=== PATIENT | female | born 1990 | race Two or more races ===

== ENCOUNTER 2019-10-23 18:56 | Emergency (ER) | payer OTHER ==
[~2019-10-23] VITALS: Ht 162.6 cm; Wt 70.3 kg
[~2019-10-23 18:56] MED LIST: ATIVAN0.5 MG ORAL
[2019-10-23 19:10] VITALS: BP 119/84
--- NOTE | 2019-10-23 19:10 | NUR ---
ED Nurse Note: Pt ambulated to ED d/t s/p fall noted w/ complains of back and LT sided neck pain with tingling sensation on LT arm. Per pt, she hit her head on the stairs. happened for a week ago; symptoms worsen today. Pt denies loss of consciousness. VSS, Pt is A&O x4.
--- NOTE | 2019-10-23 19:35 | NUR ---
ED Nurse Note: Pt to CT, consent signed
--- NOTE | 2019-10-23 20:17 | Diagnostic Imaging Report ---
EXAM: CT Lumbar Spine Without Intravenous Contrast CLINICAL HISTORY: TRAUMA TECHNIQUE: Axial computed tomography images of the lumbar spine without intravenous contrast. CTDI is 16.7 mGy and DLP is 567 mGy-cm. One or more of the following dose reduction techniques were used: automated exposure control, adjustment of the mA and/or kV according to patient size, use of iterative reconstruction technique. COMPARISON: None FINDINGS: Vertebrae: Unremarkable. No acute fracture. Discs/spinal canal/neural foramina: No acute findings. No spinal canal stenosis. Soft tissues: Unremarkable. IMPRESSION: No acute fracture or dislocation of the lumbar spine.
[2019-10-23 20:18] LABS: BASOPHILS % (AUTO) 1.5 % (0.0-2.0); EOSINOPHILS % (AUTO) 2.4 % (0.0-3.0); HEMATOCRIT 44.8 % (37.0-47.0); LYMPHOCYTES % (AUTO) 32.7 % (20.0-45.0); MEAN CORPUSCULAR VOLUME 90 FL (80-99); MONOCYTES % (AUTO) 6.6 % (1.0-10.0); NEUTROPHILS % (AUTO) 56.8 % (45.0-75.0); PLATELET COUNT 260 K/UL (150-450); RED BLOOD COUNT 4.97 M/UL (4.20-5.40); RED CELL DISTRIBUTION WIDTH 12.5 % (11.6-14.8); WHITE BLOOD COUNT 9.4 K/UL (4.8-10.8)
--- NOTE | 2019-10-23 20:20 | Diagnostic Imaging Report ---
EXAM: CT Thoracic Spine Without Intravenous Contrast CLINICAL HISTORY: TRAUMA TECHNIQUE: Axial computed tomography images of the thoracic spine without intravenous contrast. CTDI is 7.5 mGy and DLP is 274 mGy-cm. One or more of the following dose reduction techniques were used: automated exposure control, adjustment of the mA and/or kV according to patient size, use of iterative reconstruction technique. COMPARISON: None FINDINGS: Vertebrae: There is a nondisplaced fracture of the spinous process of T7. The vertebral body heights are maintained. Discs/spinal canal/neural foramina: No acute findings. No spinal canal stenosis. Soft tissues: Unremarkable. IMPRESSION: Nondisplaced fracture of the spinous process of T7.
[2019-10-23 20:22] LABS: APPEARANCE,URINE CLEAR; BILIRUBIN, URINE NEGATIVE (NEGATIVE); COLOR,URINE PALE YELLOW; GLUCOSE, URINE (UA) NEGATIVE (NEGATIVE); KETONES,URINE NEGATIVE (NEGATIVE); LEUKOCYTE ESTERASE ,URINE NEGATIVE (NEGATIVE); NITRITE,URINE NEGATIVE (NEGATIVE); PH,URINE 6.5 (4.5-8.0); PROTEIN,URINE NEGATIVE (NEGATIVE); UROBILINOGEN,URINE NORMAL MG/DL (0.0-1.0)
[2019-10-23 20:29] LABS: ANION GAP 10 mmol/L (5-15); BLOOD UREA NITROGEN 10 mg/dL (7-18); CALCIUM 8.9 MG/DL (8.5-10.1); CARBON DIOXIDE 27 MMOL/L (21-32); CHLORIDE 105 MMOL/L (98-107); CREATININE 0.9 MG/DL (0.55-1.30); POTASSIUM 3.5 MMOL/L (3.5-5.1); SODIUM 142 MMOL/L (136-145)
--- NOTE | 2019-10-23 20:29 | Diagnostic Imaging Report ---
EXAM: CT Head Without Intravenous Contrast CLINICAL HISTORY: TRAUMA TECHNIQUE: Axial computed tomography images of the head/brain without intravenous contrast. CTDI is 53 mGy and DLP is 1045 mGy-cm. One or more of the following dose reduction techniques were used: automated exposure control, adjustment of the mA and/or kV according to patient size, use of iterative reconstruction technique. COMPARISON: None FINDINGS: Brain: Unremarkable. No hemorrhage. No significant white matter disease. No edema. Ventricles: Unremarkable. No ventriculomegaly. Bones/joints: Unremarkable. No acute fracture. Soft tissues: Unremarkable. Sinuses: A mucus retention cyst is seen within the right maxillary sinus. Mastoid air cells: Unremarkable as visualized. No mastoid effusion. IMPRESSION: No acute intracranial process.
--- NOTE | 2019-10-23 20:30 | Diagnostic Imaging Report ---
EXAM: CT Head and Maxillofacial Without Intravenous Contrast CLINICAL HISTORY: TRAUMA TECHNIQUE: Axial computed tomography images of the head/brain and face without intravenous contrast. CTDI is 15.30 mGy and DLP is 287 mGy-cm. One or more of the following dose reduction techniques were used: automated exposure control, adjustment of the mA and/or kV according to patient size, use of iterative reconstruction technique. COMPARISON: None FINDINGS: Brain: Unremarkable. No hemorrhage. No significant white matter disease. No edema. Ventricles: Unremarkable. No ventriculomegaly. Bones/joints: No acute fracture. Soft tissues: Unremarkable. Sinuses: A mucus retention cyst is seen within the right maxillary sinus. Mastoid air cells: Unremarkable as visualized. No mastoid effusion. Orbits: Unremarkable as visualized. IMPRESSION: No acute facial bone fracture.
--- NOTE | 2019-10-23 20:32 | Diagnostic Imaging Report ---
EXAM: CT Cervical Spine Without Intravenous Contrast CLINICAL HISTORY: TRAUMA TECHNIQUE: Axial computed tomography images of the cervical spine without intravenous contrast. CTDI is 6 mGy and DLP is 148 mGy-cm. One or more of the following dose reduction techniques were used: automated exposure control, adjustment of the mA and/or kV according to patient size, use of iterative reconstruction technique. COMPARISON: None FINDINGS: Vertebrae: Unremarkable. No acute fracture. Discs/spinal canal/neural foramina: No acute findings. No spinal canal stenosis. Soft tissues: Unremarkable. IMPRESSION: No acute fracture or dislocation of the cervical spine.
[2019-10-23 20:33] LABS: ALANINE AMINOTRANSFERASE 25 U/L (12-78); ALBUMIN 4.7 G/DL (3.4-5.0); ALBUMIN/GLOBULIN RATIO 1.2 (1.0-2.7); ALKALINE PHOSPHATASE 99 U/L (46-116); ASPARTATE AMINO TRANSFERASE 18 U/L (15-37); BILIRUBIN,TOTAL 0.5 MG/DL (0.2-1.0)
--- NOTE | 2019-10-23 20:39 | Emergency Room Report ---
History of Present Illness General Chief Complaint: Multiple Trauma/Fall Source: Patient Present Illness HPI 29-year-old female with no significant past medical history here status post fall. Reports that about a week ago she woke up and was still drowsy and then stared and fell down the stairs and hit the back of her head to the floor. Denies any loss of consciousness, was slightly nauseated at the beginning. Any photophobia and blurry vision. Denies any fatigue and memory loss. Reports that ever since then she has been having neck pain especially with rotational movement and pain radiating down left shoulder. Denies any tingling or numbness. Also has thoracic and lumbar pain. Complains of left-sided facial pain. Denies any recent URI symptoms. Cough and congestion. Denies any blurred speech, unilateral weakness. Patient is neurovascularly intact. Speaks in full sentences. Reports that also 2 weeks ago she fell again when she was drowsy. Does not have any underlying disease that she knows of. Patient denies any dizziness at the time of fall. Denies any drug use. Denies . Has not taken medication for symptom relief. Reports the neck pain is worse when driving. No weakness in the extremities noted. Allergies: Coded Allergies: NO KNOWN ALLERGIES (Unverified Allergy, Unknown, 03/22/15) COVID-19 Screening Contact w/high risk pt: No Recent Travel to affected area: No Experienced COVID-19 symptoms?: No COVID-19 Testing performed ADMISSIONS NURSE: No Patient History Past Medical History: see triage record Past Surgical History: none Pertinent Family History: none Last Menstrual Period: October 19, 2019 Now: No Immunizations: UTD Reviewed Nursing Documentation: PMH: Agreed; PSxH: Agreed Nursing Documentation-PMH Past Medical History: No Stated History Review of Systems All Other Systems: negative except mentioned in HPI Physical Exam Vital Signs Date Time Temp Pulse Resp B/P (MAP) Pulse Ox O2 Delivery O2 Flow Rate FiO2 10/23/19 19:07 98.6 70 20 119/84 (96) 97 Room Air Sp02 EP Interpretation: reviewed, normal General Appearance: no apparent distress, alert, GCS 15, non-toxic Head: normocephalic, atraumatic Eyes: bilateral eye normal inspection, bilateral eye PERRL ENT: hearing grossly normal, normal pharynx, no angioedema, normal voice Neck: full range of motion, supple, thyroid normal, no meningismus, no bony tend, no carotid bruits, supple/symm/no masses Respiratory: chest non-tender, lungs clear, normal breath sounds, no rhonchi, no respiratory distress, no retraction, no wheezing, speaking full sentences Cardiovascular #1: regular rate, rhythm, no edema, no murmur Cardiovascular #2: 2+ carotid (R), 2+ carotid (L), 2+ radial (R), 2+ radial (L) , 2+ dorsalis pedis (R), 2+ dorsalis pedis (L) Gastrointestinal: normal bowel sounds, non tender, soft, non-distended, no guarding, no rebound Genitourinary: no CVA tenderness Musculoskeletal: back normal, no calf tenderness, pelvis stable, gait/station normal, non-tender, other - No impingement sign noted, no bony tenderness noted , no weakness is noted in the extremities, patient is neurovascularly intact Neurologic: alert, motor strength/tone normal, oriented x3, sensory intact, responsive, speech normal Psychiatric: judgement/insight normal, memory normal, mood/affect normal, no suicidal/homicidal ideation Skin: no rash, other - No ecchymosis noted Lymphatic: no adenopathy Medical Decision Making PA Attestation All diagnoses and treatment plans were reviewed and discussed with my supervising physician Dr. Mccarthy Diagnostic Impression: Primary Impression: Thoracic spine fracture Additional Impressions: Cervical sprain Head contusion ER Course 29-year-old female with no significant past medical history here status post fall. Reports that about a week ago she woke up and was still drowsy and then stared and fell down the stairs and hit the back of her head to the floor. Denies any loss of consciousness, was slightly nauseated at the beginning. Any photophobia and blurry vision. Denies any fatigue and memory loss. Reports that ever since then she has been having neck pain especially with rotational movement and pain radiating down left shoulder. Denies any tingling or numbness. Also has thoracic and lumbar pain. Complains of left-sided facial pain. Denies any recent URI symptoms. Cough and congestion. Denies any blurred speech, unilateral weakness. Patient is neurovascularly intact. Speaks in full sentences. Reports that also 2 weeks ago she fell again when she was drowsy. Does not have any underlying disease that she knows of. Patient denies any dizziness at the time of fall. Denies any drug use. Denies . Has not taken medication for symptom relief. Reports the neck pain is worse when driving. No weakness in the extremities noted. Ddx considered but are not limited to : thoracic spine fracture, thoracic spine strain, thoracic spine sprain, radiculopathy. Cerebral hematoma, head contusion , cervical sprain versus strain versus fracture, Vital signs: are WNL, pt. is afebrile H&PE are most consistent with: Thoracic spinal process fracture and T7, cervical sprain, head contusion, facial contusion, ORDERS: Head CT no contrast, CT C-spine noncontrast, CT facial noncontrast, CT T -spine no contrast, CT L-spine no contrast, CBC, CMP, UA, urine test, tox screen, troponin to rule out underlying causes of patient falling. I did not order an EKG or chest x-ray as patient was not complaining of any pain or palpitation and does not complain of any dizziness prior to fall. Robaxin, ibuprofen, lidocaine patch ED INTERVENTIONS: Soft collar was applied per patient's request DISCHARGE: At this time pt. is stable for d/c to home. Will provide printed patient care instructions, and any necessary prescriptions. Care plan and follow up instructions have been discussed with the patient prior to discharge. Patient to follow with desktop publishing specialist, take medication as directed, MRI of the neck may be needed patient complains of pain however denies any tingling or numbness. If worsening symptoms return to the emergency CT/MRI/US Diagnostic Results CT/MRI/US Diagnostic Results #1: Imaging Test Ordered: CT head no contrast Impression FINDINGS: Brain: Unremarkable. No hemorrhage. No significant white matter disease. No edema. Ventricles: Unremarkable. No ventriculomegaly. Bones/joints: Unremarkable. No acute fracture. Soft tissues: Unremarkable. Sinuses: A mucus retention cyst is seen within the right maxillary sinus. Mastoid air cells: Unremarkable as visualized. No mastoid effusion. IMPRESSION: No acute intracranial process. CT/MRI/US Diagnostic Results #2: Imaging Test Ordered: CT facial bones no contrast Impression FINDINGS: Brain: Unremarkable. No hemorrhage. No significant white matter disease. No edema. Ventricles: Unremarkable. No ventriculomegaly. Bones/joints: No acute fracture. Soft tissues: Unremarkable. Sinuses: A mucus retention cyst is seen within the right maxillary sinus. Mastoid air cells: Unremarkable as visualized. No mastoid effusion. Orbits: Unremarkable as visualized. IMPRESSION: No acute facial bone fracture. CT/MRI/US Diagnostic Results #3: Imaging Test Ordered: CT C-spine no contrast Impression FINDINGS: Vertebrae: Unremarkable. No acute fracture. Discs/spinal canal/neural foramina: No acute findings. No spinal canal stenosis. Soft tissues: Unremarkable. IMPRESSION: No acute fracture or dislocation of the cervical spine. CT/MRI/US Diagnostic Results #4: Imaging Test Ordered: CT T-spine no contrast Impression FINDINGS: Vertebrae: There is a nondisplaced fracture of the spinous process of T7. The vertebral body heights are maintained. Discs/spinal canal/neural foramina: No acute findings. No spinal canal stenosis. Soft tissues: Unremarkable. IMPRESSION: Nondisplaced fracture of the spinous process of T7. CT/MRI/US Diagnostic Results #5: Imaging Test Ordered: CT L- spine no contrast Impression FINDINGS: Vertebrae: Unremarkable. No acute fracture. Discs/spinal canal/neural foramina: No acute findings. No spinal canal stenosis. Soft tissues: Unremarkable. IMPRESSION: No acute fracture or dislocation of the lumbar spine. Last Vital Signs Date Time Temp Pulse Resp B/P (MAP) Pulse Ox O2 Delivery O2 Flow Rate FiO2 10/23/19 19:07 98.6 70 20 119/84 (96) 97 Room Air Disposition: HOME, SELF-CARE Condition: Stable Scripts Lidocaine Patch* (Lidoderm Patch*) 1 Each Adh..patch 1 PATCH TOPIC DAILY, #30 PATCH Patch(es) may remain in place for up to 12 hours in any 24-hour period. Prov: Koby Zhao 10/23/19 Methocarbamol* (ROBAXIN-500*) 500 Mg Tablet 500 MG ORAL QID PRN for For Pain, #20 TAB 0 Refills Prov: Koby Zhao 10/23/19 Ibuprofen (Ibu) 800 Mg Tablet 800 MG PO TID, #30 TAB Prov: Koby Zhao 10/23/19 Patient Instructions: Cervical Strain and Sprain With Rehab[facility]Sports[facility], Facial or Scalp Contusion, [id number] Additional Instructions: Take medication as directed, follow with desktop publishing specialist, if worsening symptoms return to the emergency room Koby Zhao Oct 23, 2019 20:39
[2019-10-23] MEDS ORDERED: IBU800 MG PO (20:41)
[2019-10-23] MEDS ORDERED: LIDODERM700 M1 TOPIC (20:41)
[2019-10-23] MEDS ORDERED: ROBAXIN-500MG ORAL (20:41)
[2019-10-23 20:50] VITALS: BP 119/84
--- NOTE | 2019-10-23 20:50 | NUR ---
ER DISCHARGE NOTE: Patient is cleared to be discharged per ERMD, pt is aox4, on room air, with stable vital signs. pt was given dc and prescription instructions, pt was able to verbalize understanding, pt id band and iv site removed without complications. pt is able to ambulate with steady gait. pt took all belongings.
== END 2019-10-23 20:50 | disposition home or self-care (01) ==
LOC: EMR 20:38
DX: S22.069A Unspecified fracture of T7-T8 vertebra, initial encounter for closed fracture (principal); J34.1 Cyst and mucocele of nose and nasal sinus; W10.9XXA Fall (on) (from) unspecified stairs and steps, initial encounter; Y92.9 Unspecified place or not applicable; R11.0 Nausea; R05 Cough; M54.5 Low back pain; S16.1XXA Strain of muscle, fascia and tendon at neck level, initial encounter; S00.93XA Contusion of unspecified part of head, initial encounter
CPT/HCPCS: 36415; 70450; 70486; 72125; 72128; 72131; 80053; 80307; 81003; 81025; 84484; 85025; 99284; G0480